=== PATIENT | female | born 1965 | race Caucasian/White ===

== ENCOUNTER → 2016-07-01 | Outpatient (CLI) | payer BC ==
[~2016-07-01] MED LIST: ACYC400T PO; CHOL100010 PO; CYAN100048 PO; FOLI1TAB7 PO
== END | disposition home or self-care (01) ==
LOC: C.PAPS 09:45
PROVIDERS: ATTEND Physician Assistant
DX: Z01.419 Encounter for gynecological examination (general) (routine) without abnormal findings (principal)

== ENCOUNTER → 2017-02-13 | Outpatient (CLI) | payer BC ==
--- NOTE | 2017-02-14 07:52 | MAMMOGRAPHY REPORT ---
BILATERAL DIGITAL SCREENING MAMMOGRAM WITH CAD: 02/13/2017 CLINICAL HISTORY: Routine screening. Patient has no complaints. TECHNIQUE: Current study was also evaluated with a Computer Aided Detection (CAD) system. Bilateral CC and MLO views were obtained. COMPARISON: Comparison is made to exams dated: 01/10/2016 mammogram, 03/07/2014 mammogram, 03/03/2013 mammogram, 03/02/2012 mammogram, 02/25/2011 mammogram, and 02/23/2010 mammogram - [facility]. BREAST COMPOSITION: The tissue of both breasts is heterogeneously dense, which may obscure small mas ses. FINDINGS: No suspicious masses, calcifications, or areas of architectural distortion are noted in ei ther breast. There has been no significant interval change compared to prior exams. IMPRESSION: ACR BI-RADS CATEGORY 1: NEGATIVE There is no mammographic evidence of malignancy. A 1 year screening mammogram is recommended. The pa tient will receive written notification of the results. Approximately 10% of breast cancers are not detected with mammography. A negative mammographic report should not delay biopsy if a clinically suggestive mass is present. Anjelica Chino M.D. /:02/13/2017 15:53:23 Manual Qa Tester: Gala OCONNOR)(Tara), [facility] letter sent: Normal 1/2 BI-RADS Code: ACR BI-RADS Category 1: Negative
== END | disposition home or self-care (01) ==
LOC: C.MAMM 14:25
PROVIDERS: ATTEND Internal Medicine
DX: Z12.31 Encounter for screening mammogram for malignant neoplasm of breast (principal)

== ENCOUNTER → 2017-07-02 | Outpatient (CLI) | payer OTHER ==
[~2017-07-02] MED LIST changes: -FOLI1TAB7 PO; +FOLI1TAB8 PO
== END | disposition home or self-care (01) ==
LOC: C.LABSPEC 11:15
PROVIDERS: ATTEND Obstetrics & Gynecology
DX: N89.8 Other specified noninflammatory disorders of vagina (principal)

== ENCOUNTER → 2017-07-02 | Outpatient (CLI) | payer OTHER | END | disposition home or self-care (01) | LOC: C.PAPS 11:41 | PROVIDERS: ATTEND Obstetrics & Gynecology | DX: Z01.419 Encounter for gynecological examination (general) (routine) without abnormal findings (principal) ==

== ENCOUNTER 2025-04-01 11:23 | Inpatient (IN) ==
[2025-04-01] MEDS: PLASMA-LYTE A 1,000 ML IV SCH (12:22)
[2025-04-01] MEDS: ACYCLOVIR SOD 700 MG in DEXTROSE 5% 100 ML IV ONE (12:22)
[2025-04-01 13:13] LABS: Alanine Aminotransferase 12.0 U/L (7-52); Albumin Globulin Ratio 2.8 (0.9-2); Albumin Level 4.8 gm/dl (3.4-5.0); Alkaline Phosphatase 67.0 U/L (34-104); Anion Gap 7.0 (3-11); Bilirubin,Total 1.6 mg/dl (0.2-1.0); Blood Urea Nitrogen 12.0 mg/dl (6-23); Calcium 9.2 mg/dl (8.6-10.3); Carbon Dioxide 30.0 mmol/L (21-32); Chloride 101.0 mmol/L (98-107); Creatinine Clr Calc Pharmacy 120.6 ml/min; Globulin 1.7 gm/dl (2.5-4.0); Glucose 106.0 mg/dl (70-99(Fasting)); Potassium 3.7 mmol/L (3.5-5.1); Sodium 138.0 mmol/L (136-145); Total Protein 6.5 gm/dl (6.0-8.3)
[2025-04-01 13:25] LABS: Hematocrit (blood only) 34.1 % (37.0-47.0); Hemoglobin 12.3 g/dL (12.0-16.0); Immature Granulocytes # (auto) 0.03 K/uL (0.01-0.20); Immature Granulocytes % (auto) 0.5 %; Mean Corpuscular Hemoglobin 30.4 pg (25.0-34.0); Mean Corpuscular Volume 84.2 fL (80.0-100.0); Platelet Count 99 K/uL (130-400); Polychromasia 1+; RDW Standard Deviation 46.2 fL (36.4-46.3); Red Blood Count 4.05 M/uL (4.20-5.40); White Blood Count 6.48 K/ul (4.8-10.8)
--- NOTE | 2025-04-01 14:10 | Emergency Department Note ---
Impression & Plan Disseminated herpes zoster, Thrombocytopenia, Acute leg pain, Localized swelling of right lower leg ED Provider Note NAME: JABIER DEL VALLEI AGE: 59 SEX: F : 1965 ARRIVES VIA: Walk-In INFORMANT: Patient, ED PROVIDER(S): Jose Juan Gonzales DO CHIEF COMPLAINT: herpes zoster HPI: This is a 59-year-old female with the PMHx of non-Hodgkin's lymphoma s/p chemotherapy in 2018 with complete remission, hemochromatosis, thrombocytopenia, and spherocytosis with splenomegaly. presenting to [facility] for further evaluation of disseminated herpes zoster infection. Patient's primary care office sent her for further evaluation of disseminated herpes zoster. Has been going on for 3 to 5 days. She has been on 3 days of Valtrex as well as gabapentin to 3 times daily. Patient failed to improve and now has developed new lesions over the chest. Extremities and scalp. Original pattern of rash was present on the right lower back nontoxic. Patient reports shocklike sensation and intermittent pain. She does note extremity swelling of the right lower extremity as well as difficulty walking due to the pain in this leg. They deny fever or chills. No cough or congestion. Denies chest pain or palpitations. No shortness of breath. They deny abdominal pain, nausea and vomiting. No urinary complaints. No recent changes in bowel movements. Patient denies recent changes in medications or OTC supplements. Patient offers no other complaints, today. ADDITIONAL HISTORY OBTAINED: Per HPI Chronic Medical/Social Conditions Affecting Care: Per HPI PAST MEDICAL HISTORY: See Below PAST SURGICAL HISTORY: See Below FAMILY HISTORY: See Below SOCIAL HISTORY: See Below HOME MEDICATIONS: See Below ALLERGIES: See Below VITALS: See Below PHYSICAL EXAMINATION: GENERAL: Sitting up in bed, alert, well appearing, well nourished, no distress, non-toxic EYE EXAM: normal conjunctiva. OROPHARYNX: no exudate, no erythema, lips, buccal mucosa, and tongue normal and mucous membranes are moist NECK: supple, no nuchal rigidity, no adenopathy, non-tender LUNGS: Clear to auscultation. Normal chest wall mechanics HEART: no murmurs, regular rate, regular rhythm ABDOMEN: abdomen soft, non-tender, no masses, no rebound or guarding. BACK: Back is symmetrical on inspection and there is no deformity, no midline tenderness, no CVA tenderness. SKIN: Honey crusted lesions over the right lower back and buttock. New erythematous lesions without significant vesicles over the right lower extremity and chest. UPPER EXTREMITIES: upper extremities are grossly normal. LOWER EXTREMITIES: Erythematous vasculitic appearing rash of the right lower extremity. Right lower extremity is mildly swollen. Neurovascularly intact. NEURO EXAM: Normal sensorium, GCS 15, normal speech, no gross weakness of arms, no gross weakness of legs. MEDICAL DECISION MAKING: Differential diagnoses includes but not limited to disseminated herpes zoster infection, viral exanthem, vasculitis, DVT, electrolyte derangements, dehydration In summary, this is a 59 year old female who presented with rash. Differential as above. Nursing notes and pertinent past medical records reviewed. Vital signs reviewed and the patient is borderline hypotensive but otherwise afebrile and hemodynamically stable. History and presentation revealed patient was diagnosed with herpes zoster infection in 3 to 5 days ago. Patient has been on Valtrex and gabapentin with failure to improve. She now has new lesions with concerns for disseminated infection. Unclear risk but has numerous hematologic diseases that could place her at higher risk for this. Physical examination revealed as above. As a result of my initial evaluation, IV access was established and the patient was placed on CCRM. Therapeutics ordered include IVFR and Acyclovir. Given RLE complaints, will obtain duplex US. Diagnostics interpreted by me include cardiac monitoring as listed below: -Cardiac Monitoring: An order was placed for continuous cardiac monitoring. The monitor shows a rate of 60-80s with regular rhythm. Patient completed laboratory studies and imaging. Results independently interpreted by me are no leukocytosis or anemia. Mild thrombocytopenia which is similar to prior draw. There is no significant electrolyte derangements or significant kidney dysfunction from baseline. No changes in LFTs. Duplex US was unremarkable for DVT. Procalcitonin is normal. The patient was managed with IV Acyclovir and IVFR. Given concern for disseminated herpes zoster, we will plan for admission with IV Acyclovir. Ultimately, the decision was made to admit the patient for disseminated herpes zoster infection. I discussed the case with the hospitalist service via telephone/Tiger[employer] and they are agreeable to admit the patient to their services. Discussed with Dr. Albright of [facility] Hospitalist group. Based on the above, including the patient's age, coexisting illnesses, labs, imaging, and exam findings the decision to treat as an inpatient. I discussed the patient with the hospitalist team who recommended admission to their services. They received the medications, treatments, interventions indicated above and their condition remained stable. I discussed my findings with the patient and their family and they understand and agree with the treatment plan. All patient / family questions were answered to their satisfaction. Consults/Care Managements Discussions: Per MDM ER treatment provided: See above Procedures: None Critical Care: None The chart was completed utilizing [email or web address] Speech voice recognition software. Grammatical errors, random word insertions, pronoun errors, and incomplete sentences are an occasional consequence of this system due to software limitations, ambient noise, and hardware issues. Any formal questions or concerns about the content, text, or information contained within the body of this dictation should be directly addressed to the physician for clarification. Past Med/Surg History Problem List (Updated 04/01/25 @ 17:53 by Jose Juan Gonzales DO) Localized swelling of right lower leg (Acute) Acute leg pain (Acute) Thrombocytopenia (Acute) Disseminated herpes zoster (Acute) Disseminated varicella History of non-Hodgkin lymphoma Dyspareunia in female Encounter for gynecological examination without abnormal finding Change in pigmented skin lesion of face Anxiety Health care maintenance Vitamin D deficiency disease (Acute) Thrombocytopenia (Acute) Spleen enlargement (Acute) Nonspecific immunological findings (Acute) History of lymphadenopathy (Acute) Nodular lymphocyte predominant Hodgkin lymphoma (Acute) Hemorrhoids (Acute) Familial spherocytosis (Acute) Medical History Inspiratory wheezing on left side of chest Tendinitis of left ankle Left ankle injury Status post chemotherapy Right hand pain Surgical History History of removal of skin mole H/O rhinoplasty Hx of tonsillectomy Family History Mother Breast cancer Hypothyroid Glaucoma Aunt Breast cancer Denies family history of Ovarian cancer Prostate cancer Myocardial infarction Colorectal cancer Social History Smoking Status: Never smoker Second Hand Exposure: No; Hx Alcohol Use: No Hx Substance Use: No Preferred Language: Setswana Visual Impairment: No Limitations Hearing Ability: Normal marital status: Current Living Situation: Family current occupational status: employed Feels Safe at Home: Yes Childhood Exposure to Second-Hand Smoke: No Dental Care, Regularly: Yes Physical Activity Frequency: Daily Seatbelt Use: always Sunscreen Use: No Allergies Allergies Allergy/AdvReac Type Severity Reaction Status Date / Time buspirone [From BuSpar] AdvReac Anxiety Verified 04/01/25 10:22 Home Meds Home Medications Medication Instructions Recorded Confirmed cholecalciferol (vitamin D3) 50 1,000 unit PO DAILY 01/15/21 04/01/25 mcg (2,000 unit) tablet folic acid 400 mcg tablet 0.4 mg PO DAILY 01/15/21 04/01/25 magnesium glycinate 100 mg (as 400 mg PO DAILY 10/03/23 04/01/25 glycinate) tablet mecobalamin (vitamin B12) 1,000 1,000 mcg PO DAILY 03/29/24 04/01/25 mcg chewable tablet Previous Rx's Medication Instructions Recorded hydroxyzine HCl 10 mg tablet 10 mg PO TID PRN anxiety #30 tabs 10/03/23 loratadine 10 mg tablet 10 mg PO DAILY PRN allergy 06/07/24 symptoms #30 tabs escitalopram oxalate 5 mg tablet 5 mg PO DAILY #30 tabs 10/14/24 (Lexapro) gabapentin 100 mg capsule 100 mg PO TID PRN Nerve pain #30 03/29/25 caps Results & Data (ED) Vital Signs Vital Signs - 24 hr 04/01/25 11:34 04/01/25 12:26 04/01/25 12:53 Temperature 36.4 C L Temperature Source Temporal Artery Scan Pulse Rate 75 68 Pulse Rate from SpO2 Sensor Respiratory Rate 20 Respiratory Effort / Characteristics Non-Labored Respiratory Depth Normal Blood Pressure 115/74 121/71 Blood Pressure Mean 87 91 Pulse Oximetry 97 Oxygen Delivery Method Room Air Sepsis Recent Fever Within 48 Hours No Sepsis New/Unexplained Change in Mental Status No Sepsis Action Taken by Nursing No Action Required 04/01/25 13:00 04/01/25 13:30 04/01/25 14:24 Temperature Temperature Source Pulse Rate 77 74 71 Pulse Rate from SpO2 Sensor 75 72 71 Respiratory Rate 15 18 13 Respiratory Effort / Characteristics Respiratory Depth Blood Pressure 129/76 96/75 L 117/67 Blood Pressure Mean 93 82 83 Pulse Oximetry 98 100 99 Oxygen Delivery Method Room Air Room Air Room Air Sepsis Recent Fever Within 48 Hours Sepsis New/Unexplained Change in Mental Status Sepsis Action Taken by Nursing 04/01/25 14:30 Temperature Temperature Source Pulse Rate 71 Pulse Rate from SpO2 Sensor 70 Respiratory Rate 17 Respiratory Effort / Characteristics Respiratory Depth Blood Pressure 128/75 Blood Pressure Mean 92 Pulse Oximetry 98 Oxygen Delivery Method Room Air Sepsis Recent Fever Within 48 Hours Sepsis New/Unexplained Change in Mental Status Sepsis Action Taken by Nursing Laboratory Data 04/01/25 12:20 04/01/25 12:20 Lab Results 04/01/25 Range/Units 12:20 WBC 6.48 (4.8-10.8) K/ul RBC 4.05 L (4.20-5.40) M/uL Hgb 12.3 (12.0-16.0) g/dL Hct 34.1 L (37.0-47.0) % MCV 84.2 (80.0-100.0) fL MCH 30.4 (25.0-34.0) pg MCHC 36.1 H (32.0-36.0) g/dL RDW Std Deviation 46.2 (36.4-46.3) fL RDW Coeff of Alex 15.2 H (11.5-14.5) % Plt Count 99 L (130-400) K/uL MPV 10.1 (9.4-12.4) fL Immature Gran % (Auto) 0.5 % Neut % (Auto) 55.5 % Lymph % (Auto) 34.1 % [place] % (Auto) 9.4 % Eos % (Auto) 0.3 % Baso % (Auto) 0.2 % Neut # (Auto) 3.60 (1.40-6.50) K/uL Lymph # (Auto) 2.21 (1.20-3.40) K/uL [place] # (Auto) 0.61 H (0.11-0.59) K/uL Eos # (Auto) 0.02 (0.00-0.50) K/uL Baso # (Auto) 0.01 (0.00-0.20) K/uL Immature Gran # (Auto) 0.03 (0.01-0.20) K/uL Platelet Estimate Decreased L (Normal) Polychromasia 1+ Sodium 138 (136-145) mmol/L Potassium 3.7 (3.5-5.1) mmol/L Chloride 101 (98-107) mmol/L Carbon Dioxide 30 (21-32) mmol/L Anion Gap 7 (3-11) BUN 12 (6-23) mg/dl Creatinine 0.54 L (0.6-1.2) mg/dl Est Cr Clr Drug Dosing 120.6 ml/min eGFR 105.99 BUN/Creatinine Ratio 22.2 H (10-20) Glucose 106 H (70-99(Fasting)) mg/dl Calcium 9.2 (8.6-10.3) mg/dl Total Bilirubin 1.6 H (0.2-1.0) mg/dl AST 14 (13-39) U/L ALT 12 (7-52) U/L Alkaline Phosphatase 67 (34-104) U/L Total Protein 6.5 (6.0-8.3) gm/dl Albumin 4.8 (3.4-5.0) gm/dl Globulin 1.7 L (2.5-4.0) gm/dl Albumin/Globulin Ratio 2.8 H (0.9-2) Procalcitonin 0.17 (0-0.5) ng/ml Administered Medications Parenteral Electrolytes (Plasma-Lyte A Ph 7.4) 1,000 mls @ 125 mls/hr IV .Q8H KRYSTINA Stop: 04/04/25 11:59 Last Admin: 04/01/25 12:22 Dose: 125 mls/hr Documented By: mbu Discontinued Medications Acyclovir Sodium 700 mg/ (Dextrose) 114 mls @ 100 mls/hr IV NOW ONE; Protocol Stop: 04/01/25 12:53 Last Infusion: 04/01/25 13:45 Dose: Infused Documented By: mbu Admin: 04/01/25 12:22 Dose: 100 mls/hr Documented By: mbu Imaging Data Radiologist's Impression: Venous Doppler Study 04/01/25 11:45 US venous doppler LE RT HISTORY: eval for dvt COMPARISON: None TECHNIQUE: Multiple real-time sonographic images of the right lower extremity deep venous structures were obtained assessing grayscale appearance, color and spectral flow. FINDINGS: No evidence of DVT seen at the right lower extremity. IMPRESSION: No DVT seen. ACT 112: Negative or not required by law. The above report was generated using voice recognition software. It may contain grammatical, syntax or spelling errors. Electronically signed by: Waldo Dubose M.D. 04/01/2025 2:20 PM Discharge Plan Visit Data Chief Complaint: Referred by Doctor Stated Complaint: REF BY DOC, INFUSION ED Provider: Jose Juan Gonzales Discharge Problem: Disseminated herpes zoster, Thrombocytopenia, Acute leg pain, Localized swelling of right lower leg Patient Disposition: Admitted As Inpatient Condition: Fair Discharge Instructions Interventions: ED Discharge Assessment Last Done: 04/01/25 17:37
--- NOTE | 2025-04-01 14:22 | Ultrasound Report ---
US venous doppler LE RT HISTORY: eval for dvt COMPARISON: None TECHNIQUE: Multiple real-time sonographic images of the right lower extremity deep venous structures were obtained assessing grayscale appearance, color and spectral flow. FINDINGS: No evidence of DVT seen at the right lower extremity. IMPRESSION: No DVT seen. ACT 112: Negative or not required by law. The above report was generated using voice recognition software. It may contain grammatical, syntax o r spelling errors. Electronically signed by: Waldo Dubose M.D. 04/01/2025 2:20 PM
--- NOTE | 2025-04-01 16:23 | History & Physical Report ---
Date of Service April 01, 2025 Assessment & Plan (1) Disseminated varicella: (2) Anxiety: (3) Thrombocytopenia: Plan 59-year-old female with a past medical history of non-Hodgkin's lymphoma in remission, anxiety, thrombocytopenia, splenomegaly presents for facility with likely disseminated varicella with failure of outpatient therapy: #Disseminated varicella -Admit to [facility] -Patient ordered for intravenous acyclovir -Reviewed with infectious disease, await further recommendations and consultation -Unclear underlying cause for disseminated varicella #Anxiety -Continue home Lexapro dosing #Thrombocytopenia -Continue to monitor platelets, no evidence of acute bleeding noted History of Present Illness Chief Complaint: rash Primary Care Provider: Sammie Myles MD 59-year-old female with a past medical history as mentioned below presents to the hospital from home. She mentions that last Friday she started experiencing right lower extremity discomfort, along with some skin changes for which she went to an urgent care center. She was diagnosed with shingles, given a prescription for acyclovir but told that she will likely will not need to take this. She did not take the acyclovir, and noticed worsening discomfort along with skin changes on her chest for which she went to her primary care physician earlier this week. They recommended that she take the acyclovir, which she initiated. She has been taking the acyclovir for at least 2 days, but noticed increased skin changes along with sharp pain on her right scalp. She denies having any vision changes or hearing issues. She also noticed increased skin changes on her right back area, Along with skin changes going down to her right leg and foot. She reached out to her primary care physician's office today and they advised that she come to the hospital for intravenous medication. She has had no fevers but mention she has had some intermittent chills. She has not no cough. She had chickenpox as a child but did not receive the shingles vaccine. Allergies Allergy/AdvReac Type Severity Reaction Status Date / Time buspirone [From BuSpar] AdvReac Anxiety Verified 04/01/25 10:22 Home Medications Medication Instructions Recorded Confirmed Type cholecalciferol (vitamin D3) 50 1,000 unit PO DAILY 01/15/21 04/01/25 History mcg (2,000 unit) tablet folic acid 400 mcg tablet 0.4 mg PO DAILY 01/15/21 04/01/25 History hydroxyzine HCl 10 mg tablet 10 mg PO TID PRN anxiety #30 tabs 10/03/23 04/01/25 Rx magnesium glycinate 100 mg (as 400 mg PO DAILY 10/03/23 04/01/25 History glycinate) tablet mecobalamin (vitamin B12) 1,000 1,000 mcg PO DAILY 03/29/24 04/01/25 History mcg chewable tablet loratadine 10 mg tablet 10 mg PO DAILY PRN allergy 06/07/24 04/01/25 Rx symptoms #30 tabs escitalopram oxalate 5 mg tablet 5 mg PO DAILY #30 tabs 10/14/24 04/01/25 Rx (Lexapro) gabapentin 100 mg capsule 100 mg PO TID PRN Nerve pain #30 03/29/25 04/01/25 Rx caps Past Med/Surg History Problem List (Updated 04/01/25 @ 17:53 by Jose Juan Gonzales DO) Localized swelling of right lower leg (Acute) Acute leg pain (Acute) Thrombocytopenia (Acute) Disseminated herpes zoster (Acute) Disseminated varicella History of non-Hodgkin lymphoma Dyspareunia in female Encounter for gynecological examination without abnormal finding Change in pigmented skin lesion of face Anxiety Health care maintenance Vitamin D deficiency disease (Acute) Thrombocytopenia (Acute) Spleen enlargement (Acute) Nonspecific immunological findings (Acute) History of lymphadenopathy (Acute) Nodular lymphocyte predominant Hodgkin lymphoma (Acute) Hemorrhoids (Acute) Familial spherocytosis (Acute) Medical History Inspiratory wheezing on left side of chest Tendinitis of left ankle Left ankle injury Status post chemotherapy Right hand pain Surgical History History of removal of skin mole H/O rhinoplasty Hx of tonsillectomy Family History Mother Breast cancer Hypothyroid Glaucoma Aunt Breast cancer Denies family history of Ovarian cancer Prostate cancer Myocardial infarction Colorectal cancer Social History Smoking Status: Never smoker Second Hand Exposure: No; Hx Alcohol Use: No Hx Substance Use: No Preferred Language: Russian Visual Impairment: No Limitations Hearing Ability: Normal marital status: Current Living Situation: Family current occupational status: employed Feels Safe at Home: Yes Childhood Exposure to Second-Hand Smoke: No Dental Care, Regularly: Yes Physical Activity Frequency: Daily Seatbelt Use: always Sunscreen Use: No Physical Exam Constitutional: well developed and well nourished Respiratory: normal respiratory effort Cardiovascular: RRR, no murmur, no edema Gastrointestinal (Abdomen): normal bowel sounds, soft, nontender, no hepatosplenomegaly Musculoskeletal: no cyanosis or clubbing, extremities motor strength 5/5 Skin: diffuse rash n right bck area that goes down to the right foot, some area on lower back and chest area, and one on right forehead. Psychiatric: A+Ox3, euthymic affect Results & Data Results & Data Vital Signs (Past 12 Hours) Vital Signs Temp Pulse Resp BP Pulse Ox O2 Del Method 04/01/25 14:30 71 17 128/75 98 Room Air 04/01/25 14:24 71 13 117/67 99 Room Air 04/01/25 13:30 74 18 96/75 L 100 Room Air 04/01/25 13:00 77 15 129/76 98 Room Air 04/01/25 12:53 121/71 04/01/25 12:26 68 04/01/25 11:34 36.4 C L 75 20 115/74 97 Room Air Laboratory Results 04/01/25 12:20 WBC 6.48 RBC 4.05 L Hgb 12.3 Hct 34.1 L MCV 84.2 MCH 30.4 MCHC 36.1 H RDW Std Deviation 46.2 RDW Coeff of Alex 15.2 H Plt Count 99 L MPV 10.1 Immature Gran % (Auto) 0.5 Neut % (Auto) 55.5 Lymph % (Auto) 34.1 [place] % (Auto) 9.4 Eos % (Auto) 0.3 Baso % (Auto) 0.2 Neut # (Auto) 3.60 Lymph # (Auto) 2.21 [place] # (Auto) 0.61 H Eos # (Auto) 0.02 Baso # (Auto) 0.01 Immature Gran # (Auto) 0.03 Platelet Estimate Decreased L Polychromasia 1+ Sodium 138 Potassium 3.7 Chloride 101 Carbon Dioxide 30 Anion Gap 7 BUN 12 Creatinine 0.54 L Est Cr Clr Drug Dosing 120.6 eGFR 105.99 BUN/Creatinine Ratio 22.2 H Glucose 106 H Calcium 9.2 Total Bilirubin 1.6 H AST 14 ALT 12 Alkaline Phosphatase 67 Total Protein 6.5 Albumin 4.8 Globulin 1.7 L Albumin/Globulin Ratio 2.8 H Procalcitonin 0.17 Diagnostic Findings Venous Doppler Study 04/01/25 11:45 US venous doppler LE RT HISTORY: eval for dvt COMPARISON: None TECHNIQUE: Multiple real-time sonographic images of the right lower extremity deep venous structures were obtained assessing grayscale appearance, color and spectral flow. FINDINGS: No evidence of DVT seen at the right lower extremity. IMPRESSION: No DVT seen. ACT 112: Negative or not required by law. The above report was generated using voice recognition software. It may contain grammatical, syntax or spelling errors. Electronically signed by: Waldo Dubose M.D. 04/01/2025 2:20 PM Code Status & VTE Plan VTE Prophylaxis Plan VTE Prophylaxis will be ordered: Yes PG Care Time/CCT Total # of Minutes Spent Total Time Spent with Patient: Total time spent is greater than 50% in coordination of care (as documented) at patient's floor/unit and/or counseling patient: Coding Level of Care Code 75646 INT INP/OBS CARE 3/75MIN Diagnoses Disseminated varicella B01.9 Anxiety F41.9 Thrombocytopenia D69.6
--- NOTE | 2025-04-01 16:30 | Infectious Disease Consult ---
Date of Consultation April 01, 2025 Assessment & Plan (1) Disseminated varicella: (2) History of non-Hodgkin lymphoma: (3) Spleen enlargement: Plan 59yo F with h/o non-Hodgkins lymphoma dx 2015 s/p RCHOP with complete remission by Mar 2015, familial spherocytosis, hereditary hemochromatosis, enlarged spleen, hemorrhoids who presented on 04/01 with c/f disseminated zoster with initial lesions starting about 1wk ago. Taking valacyclovir since 03/29. On arrival, she was afebrile, vss. WBC wnl, Cr 0.54, AST/ALT wnl. PCT 0.17. Right LE venous doppler neg for DVT. She was started on acyclovir. ID consulted 04/01. Im unable to see patient due to no telepresenter availability at this time. Would continue acyclovir for disseminated infection. She is not on chemo and doesnt have any current known immunocompromise. Would assess for any findings that could suggest zoster ophthalmicus (ie lesion distribution over face/tip of nose). Evaluate for visceral involvement (LFTs ok, would obtain a CXR). She also needs to be evaluated for underlying immunosuppression (e.g. HIV, diabetes, any other malignancy or recurrence). # Disseminated herpes zoster # h/o non-Hodgkins lymphoma in remission since 2014 - please obtain CXR for w/u of visceral involvement (ie pneumonitis) - evaluate for any facial lesions that could suggest zoster ophthalmicus if present, she needs an ophthalmologic exam - please obtain verbal consent for HIV testing and send HIV screen - evaluate for underlying malignancy (recurrence of NHL?) or other immunocompromising conditions (e.g., diabetes) - Vivian ordered acyclovir 10mg/kg IV q8h (wt 68.1kg) - contact and airborne precautions due to disseminated disease Will continue to follow. Please note that there will be no ID notes over the weekend. If questions or concerns arise, please contact the Infectious Disease Call Center and ask to speak with the covering ID physician. Esther Dias MD [facility], Division of Infectious Diseases Consultation Information This patient recommendation is based on a telemedicine consult request which was completed asynchronously through chart review and information provided by the primary physician. The patient was not seen or examined today. The evaluation is consultative in nature and all patient care and treatment decisions can either be accepted or rejected by the patient's primary hospital-based treating physician using their own independent medical judgment for their patient. Data Warehousing Manager contact information: Please call ID Connect Call Center . (Phone Number For Physician Use Only) Time Spent Reviewing Chart: 31+ minutes History of Present Illness Reason for Consultation: disseminated zoster Requesting Physician: Daniele Albright History of Present Illness 59yo F with h/o non-Hodgkins lymphoma dx 2015 s/p RCHOP with complete remission by Mar 2015, familial spherocytosis, hereditary hemochromatosis, enlarged spleen, hemorrhoids who presented on 04/01 with c/f disseminated zoster. She was seen in [facility] on 03/25 with right buttock pain with radiation down the leg with subsequent development of vesicles on the right upper/mid buttock and lateral hip following a dermatomal pattern. She was prescribed valacyclovir 1g PO tid for shingles. She was seen at PCP office on 03/29 at which time she reported that she had not started valacyclovir since her pain was improving. However, she reported to PCP that she was developing new lesions on night of 03/28 and continued to have pain in her back, but no longer shooting down. Also reported malaise. Her exam at that time was noted to have 2 quarter sized vesicular lesions along right iliac with erythema. She was advised to start valacyclovir since she continued to develop new lesions. She was then seen in PCP office on 04/01 at which time she reported right foot swelling with rash on dorsum of foot, pins/needles with difficulty walking due to pain, noted a spot under her right breast and also with sharp pain on the right side of her head with possible spot on her restoration. Exam at that time noted herpetic lesions on right sacral area around L5, additional lesions around T12 and T7 on back and front, right restoration and TMJ lesions, right lower leg lesion L5/S1 with right foot swelling. Given lesions crossing dermatomes and c/f disseminated zoster, she was advised to go to the ED. On arrival, she was afebrile, vss. WBC wnl, Cr 0.54, Ast/ALT wnl. PCT 0.17. Right LE venous doppler neg for DVT. She was started on acyclovir. ID consulted 04/01. No telepresenter available at this time. Allergies Allergy/AdvReac Type Severity Reaction Status Date / Time buspirone [From BuSpar] AdvReac Anxiety Verified 04/01/25 10:22 Home Medications Medication Instructions Recorded Confirmed Type cholecalciferol (vitamin D3) 50 1,000 unit PO DAILY 01/15/21 04/01/25 History mcg (2,000 unit) tablet folic acid 400 mcg tablet 0.4 mg PO DAILY 01/15/21 04/01/25 History hydroxyzine HCl 10 mg tablet 10 mg PO TID PRN anxiety #30 tabs 10/03/23 04/01/25 Rx magnesium glycinate 100 mg (as 400 mg PO DAILY 10/03/23 04/01/25 History glycinate) tablet mecobalamin (vitamin B12) 1,000 1,000 mcg PO DAILY 03/29/24 04/01/25 History mcg chewable tablet loratadine 10 mg tablet 10 mg PO DAILY PRN allergy 06/07/24 04/01/25 Rx symptoms #30 tabs escitalopram oxalate 5 mg tablet 5 mg PO DAILY #30 tabs 10/14/24 04/01/25 Rx (Lexapro) gabapentin 100 mg capsule 100 mg PO TID PRN Nerve pain #30 03/29/25 04/01/25 Rx caps Patient History Medical History Inspiratory wheezing on left side of chest Tendinitis of left ankle Left ankle injury Status post chemotherapy Right hand pain Surgical History History of removal of skin mole H/O rhinoplasty Hx of tonsillectomy Family History Mother Breast cancer Hypothyroid Glaucoma Aunt Breast cancer Denies family history of Ovarian cancer Prostate cancer Myocardial infarction Colorectal cancer Social History Smoking Status: Never smoker Second Hand Exposure: No; Hx Alcohol Use: No Hx Substance Use: No Preferred Language: Citizen Of [place] Visual Impairment: No Limitations Hearing Ability: Normal marital status: Current Living Situation: Family current occupational status: employed Feels Safe at Home: Yes Childhood Exposure to Second-Hand Smoke: No Dental Care, Regularly: Yes Physical Activity Frequency: Daily Seatbelt Use: always Sunscreen Use: No Results & Data Vital Signs (Past 12 Hours) Vital Signs Temp Pulse Resp BP Pulse Ox O2 Del Method 04/01/25 16:27 67 04/01/25 14:30 71 17 128/75 98 Room Air 04/01/25 14:24 71 13 117/67 99 Room Air 04/01/25 13:30 74 18 96/75 L 100 Room Air 04/01/25 13:00 77 15 129/76 98 Room Air 04/01/25 12:53 121/71 04/01/25 12:26 68 04/01/25 11:34 36.4 C L 75 20 115/74 97 Room Air Laboratory Results Labs reviewed. Diagnostic Findings Imaging reviewed.
[2025-04-01] MEDS ORDERED: MELATONIN 3 MG TAB PO PRN (17:37)
[2025-04-01] MEDS ORDERED: ALUMINUM/MAGNESIUM SUSP 30 ML UDC PO PRN (17:37)
[2025-04-01] MEDS ORDERED: MAGNESIUM HYDROXIDE SUSP 30 ML UDC PO PRN (17:37)
[2025-04-01] MEDS ORDERED: ACYCLOVIR SOD 680 MG in DEXTROSE 5% 100 ML IV SCH (17:37)
[2025-04-01 18:18] LABS: Ferritin 207.5 ng/ml (8-388)
[2025-04-01] MEDS: ACETAMINOPHEN 325 MG TAB PO PRN (18:29)
[2025-04-01] MEDS: SODIUM CHLORIDE 0.9% 1,000 ML IV SCH (18:31)
[2025-04-01] MEDS: ENOXAPARIN INJ 40 MG/0.4 ML SYR SQ SCH (18:33)
--- NOTE | 2025-04-01 20:35 | XRay Report ---
Exam(s): XR CXR 2 VIEWS EXAM: XR Chest, 2 Views CLINICAL HISTORY: Reason for exam: zoster evaluation. TECHNIQUE: Frontal and lateral views of the chest. COMPARISON: 05/15/2009. FINDINGS: Lungs: Unremarkable. No consolidation. Pleural space: Unremarkable. No pneumothorax. Heart: Unremarkable. No cardiomegaly. Mediastinum: Unremarkable. Normal mediastinal contour. Bones/joints: Mild degenerative changes in the spine. No acute fracture or bone lesion is identified. Soft tissues: There are surgical clips projecting of the left upper thorax which are new. Upper abdomen: Unremarkable as visualized. No pneumoperitoneum under the diaphragm. IMPRESSION: No acute findings in the chest. Electronically signed by: Yuriy Johnson MD 04/01/25 20:34 PM
[2025-04-01] MEDS: ACYCLOVIR SOD 700 MG in DEXTROSE 5% 100 ML IV SCH (22:06)
[2025-04-02] MEDS: GABAPENTIN 100 MG CAP PO PRN (05:57)
[2025-04-02 06:52] LABS: Hematocrit (blood only) 31.6 % (37.0-47.0); Hemoglobin 11.3 g/dL (12.0-16.0); Immature Granulocytes # (auto) 0.01 K/uL (0.01-0.20); Immature Granulocytes % (auto) 0.2 %; Mean Corpuscular Hemoglobin 30.9 pg (25.0-34.0); Mean Corpuscular Volume 86.3 fL (80.0-100.0); Platelet Count 98 K/uL (130-400); RDW Standard Deviation 47.7 fL (36.4-46.3); Red Blood Count 3.66 M/uL (4.20-5.40); White Blood Count 4.83 K/ul (4.8-10.8)
[2025-04-02 07:21] LABS: Alanine Aminotransferase 11.0 U/L (7-52); Albumin Globulin Ratio 2.9 (0.9-2); Albumin Level 4.1 gm/dl (3.4-5.0); Alkaline Phosphatase 60.0 U/L (34-104); Anion Gap 6.0 (3-11); Bilirubin,Total 1.2 mg/dl (0.2-1.0); Blood Urea Nitrogen 12.0 mg/dl (6-23); Calcium 8.7 mg/dl (8.6-10.3); Carbon Dioxide 30.0 mmol/L (21-32); Chloride 105.0 mmol/L (98-107); Creatinine Clr Calc Pharmacy 115.8 ml/min; Globulin 1.4 gm/dl (2.5-4.0); Glucose 125.0 mg/dl (70-99(Fasting)); Magnesium 2.4 mg/dl (1.7-2.4); Potassium 4.0 mmol/L (3.5-5.1); Sodium 141.0 mmol/L (136-145); Total Protein 5.5 gm/dl (6.0-8.3)
[2025-04-02 07:40] LABS: Ferritin 211.1 ng/ml (8-388)
[2025-04-02 07:42] LABS: INR 1.0 (0.9-1.1); Prothrombin Time 10.7 Seconds (9.0-12.0)
[2025-04-02] MEDS: FOLIC ACID 400 MCG TAB PO SCH (07:59)
[2025-04-02] MEDS: CHOLECALCIFEROL 25 MCG (1000 UNITS) TAB PO SCH (07:59)
[2025-04-02] MEDS: ESCITALOPRAM OXALATE 10 MG TAB PO SCH (07:59)
[2025-04-02] MEDS: CYANOCOBALAMIN (B-12) 500 MCG TABLET PO SCH (08:01)
[2025-04-02] MEDS ORDERED: CHOLECALCIFEROL 25 MCG (1000 UNITS) TAB PO SCH (09:00)
[2025-04-02] MEDS: MAGNESIUM OXIDE 400 MG TAB PO SCH (09:48)
--- NOTE | 2025-04-02 12:09 | Hospitalist Progress Note ---
Date of Service April 02, 2025 Assessment & Plan (1) Disseminated varicella: (2) Anxiety: (3) Thrombocytopenia: Plan 59-year-old female with a past medical history of non-Hodgkin's lymphoma in remission, anxiety, thrombocytopenia, splenomegaly presents for facility with likely disseminated varicella with failure of outpatient therapy: #Disseminated varicella -Patient ordered for intravenous acyclovir -Reviewed with infectious disease, Awaiting proper infectious disease c onsultation, this will likely not be until 04/04. -Unclear underlying cause for disseminated varicella -Will check for HIV, chest x-ray with no acute findings -has some lesions on the scalp, will consider reviewing with ophthalmology, no vision changes noted at this time. -pt is with some scalp lesions. #Anxiety -Continue home Lexapro dosing #Thrombocytopenia -Continue to monitor platelets, no evidence of acute bleeding noted #Hyperbilirubinemia -Patient with elevated bilirubin on admission, will check abdominal ultrasound to evaluate this further Admission and Anticipated Discharge Date Admission Date: April 01, 2025 Subjective Patient seen and examined. She denies having any chest pain or trouble breathing at this time. She denies having a cough at this time. She complains of ongoing discomfort and sharp pain in her foot. Physical Exam Constitutional: well developed and well nourished Respiratory: normal respiratory effort Cardiovascular: RRR, no murmur, no edema Gastrointestinal (Abdomen): normal bowel sounds, soft, nontender, no hepatosplenomegaly Musculoskeletal: no cyanosis or clubbing, extremities motor strength 5/5 Psychiatric: A+Ox3, euthymic affect Results & Data Results & Data Vital Signs (Past 12 Hours) Vital Signs Temp Pulse Resp BP Pulse Ox O2 Del Method 04/02/25 08:02 36.8 C 65 14 103/63 95 Room Air PG Care Time/CCT Total # of Minutes Spent Total Time Spent with Patient: Total time spent is greater than 50% in coordination of care (as documented) at patient's floor/unit and/or counseling patient: Coding Level of Care Code 83923 SUB INP/OBS CARE 3/50MIN Diagnoses Disseminated varicella B01.9 Anxiety F41.9 Thrombocytopenia D69.6
[2025-04-02] MEDS: SODIUM CHLORIDE 0.65% NA SOLN 45 ML (OCEAN) PRN (15:17)
[2025-04-02] MEDS: POLYETHYLENE (MIRALAX) 17 GM PACK PO PRN (15:25)
[2025-04-02] MEDS: GABAPENTIN 300 MG CAP PO SCH (21:42)
[2025-04-03 06:36] LABS: Hematocrit (blood only) 32.6 % (37.0-47.0); Hemoglobin 11.4 g/dL (12.0-16.0); Immature Granulocytes # (auto) 0.01 K/uL (0.01-0.20); Immature Granulocytes % (auto) 0.2 %; Mean Corpuscular Hemoglobin 30.2 pg (25.0-34.0); Mean Corpuscular Volume 86.5 fL (80.0-100.0); Platelet Count 122 K/uL (130-400); RDW Standard Deviation 47.0 fL (36.4-46.3); Red Blood Count 3.77 M/uL (4.20-5.40); White Blood Count 5.08 K/ul (4.8-10.8)
[2025-04-03 07:13] LABS: Alanine Aminotransferase 14 U/L (7-52); Albumin Globulin Ratio 2.9 (0.9-2); Albumin Level 4.1 gm/dl (3.4-5.0); Alkaline Phosphatase 60 U/L (34-104); Anion Gap 6 (3-11); Bilirubin,Total 1.0 mg/dl (0.2-1.0); Blood Urea Nitrogen 12 mg/dl (6-23); Calcium 9.0 mg/dl (8.6-10.3); Carbon Dioxide 28 mmol/L (21-32); Chloride 107 mmol/L (98-107); Creatinine Clr Calc Pharmacy 115.8 ml/min; Globulin 1.4 gm/dl (2.5-4.0); Glucose 101 mg/dl (70-99(Fasting)); Magnesium 2.4 mg/dl (1.7-2.4); Potassium 4.2 mmol/L (3.5-5.1); Sodium 141 mmol/L (136-145); Total Protein 5.5 gm/dl (6.0-8.3)
[2025-04-03 07:14] LABS: Immunoglobulin A < 10.0 mg/dl (70-400); Immunoglobulin G < 200.0 mg/dl (635-1741); Immunoglobulin M 70.2 mg/dl (45-281)
--- NOTE | 2025-04-03 10:12 | Allergy & Immunology Consult ---
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 Although the patient does not have a particularly significant history of sinopulmonary infections, she is currently hospitalized for disseminated varicella-zoster (which puts her at increased risk of developing secondary superinfection with encapsulated organisms). Fortunately, the patient has not required inpatient therapy with any antibiotics thus far. As the patient's clinical picture is consistent with a secondary CVID status post her chemotherapy course, the patient will be acutely treated with a spot dose of IVIG (of note, Octagam contains trace levels of IgA) and she will subsequently follow-up with Allergy/Immunology on a longitudinal outpatient basis moving forward. Given the patient's largely unremarkable infectious history prior to her chemotherapy, it is unlikely that she is experiencing symptoms of an underlying primary immunodeficiency (particularly as her family history of immunodeficiency requiring immunoglobulin replacement is also status post chemotherapy). -Continue treatment for disseminated varicella-zoster as per primary Hospitalist team/Infectious Disease recommendations -10mg/kg IV acyclovir q8h -Recommend receiving the Shingrix vaccination at PCP's office once the acute illness is over and symptoms (rash, etc.) have fully resolved -Administer spot-dose of ~500mg/kg IVIG (35g IVIG) in an acute illness setting -Consider pretreatment/treatment with antihistamines and/or acetaminophen, as necessary -Will follow up patient on an outpatient basis to better discern whether she requires longitudinal immunoglobulin replacement (e.g. 10g qWeekly Hizentra or ~590mg/kg/month dosing) -Obtain following labs to round out immune system evaluation: lymphocyte subsets, pneumococcal titers, and tetanus titer -These labs will also be followed up in an outpatient setting (i.e., not in an acute illness) -Results of lab work will better inform any additional evaluation/management (e.g. Capvaxive-21 vaccination, genetic testing, etc.) History of Present Illness Reason for Consultation: "ig deficiency" Attending Physician: Daniele Albright MD History of Present Illness Patient is a 59 year old woman with history of non-Hodgkin's lymphoma (status post R-CHOP chemotherapy), similar family history of malignancy and subsequent secondary immunodeficiency, and is currently being hospitalized for disseminated varicella-zoster. The patient's sister (a Operations And Maintenance Specialist in [place]) joined in the visit via Phone Call to assist in providing pascual components of a reliable clinical history. The patient reviews that she does not have a particularly significant history of frequently recurring sinopulmonary infections (not typically experiencing sinus infections, and never having experienced symptoms of pneumonia in her lifetime), but that she does have a previous medical history of stage IIIA non-Hodgkin's lymphoma diagnosed in October 2014 (status post R-CHOP chemotherapy, now in [facility]). Of note, as part of her chemotherapy the patient has received rituximab (a B-cell depleting agent). Although she previously experienced chickenpox, the patient has never received the Shingrix vaccination and more recently over the past 2 weeks or so she has developed a progressively worsening rash (associated with a burning sensation) that has ultimately culminated in being diagnosed as disseminated zoster for which she is now currently hospitalized and receiving IV acyclovir. She notes that her rashes and burning sensations have already started to largely (though not completely) improve. The remainder of her hospital course thus far has been largely uneventful, as the patient's varicella-zoster has not been complicated by superinfection with encapsulated organisms (sinopulmonary infections, skin abscesses, etc.). Of note, the patient does have a family history of similar malignant/infectious/immunocompromised concerns. More specifically, the patient's sister (a Operations And Maintenance Specialist in [place]) has had a very similar illness/treatment course and has previously been identified to have low immunoglobulin levels for which she also periodically receives immunoglobulin replacement therapy ("typically receiving outpatient IVIG infusions about twice per year or so as infection prophylaxis before large conferences, etc."). As such, as part of her own inpatient workup the patient was also identified to have low immunoglobulin levels (IgG <200.0mg/dL, IgA <10.0mg/dL, and IgM 70.2mg/dL). She has not required inpatient therapy with any antibiotics thus far. Allergies Allergy/AdvReac Type Severity Reaction Status Date / Time buspirone [From BuSpar] AdvReac Anxiety Verified 04/01/25 10:22 Home Medications Medication Instructions Recorded Confirmed Type cholecalciferol (vitamin D3) 50 1,000 unit PO DAILY 01/15/21 04/01/25 History mcg (2,000 unit) tablet folic acid 400 mcg tablet 0.4 mg PO DAILY 01/15/21 04/01/25 History hydroxyzine HCl 10 mg tablet 10 mg PO TID PRN anxiety #30 tabs 10/03/23 04/01/25 Rx magnesium glycinate 100 mg (as 400 mg PO DAILY 10/03/23 04/01/25 History glycinate) tablet mecobalamin (vitamin B12) 1,000 1,000 mcg PO DAILY 03/29/24 04/01/25 History mcg chewable tablet loratadine 10 mg tablet 10 mg PO DAILY PRN allergy 06/07/24 04/01/25 Rx symptoms #30 tabs escitalopram oxalate 5 mg tablet 5 mg PO DAILY #30 tabs 10/14/24 04/01/25 Rx (Lexapro) gabapentin 100 mg capsule 100 mg PO TID PRN Nerve pain #30 03/29/25 04/01/25 Rx caps Patient History Medical History Inspiratory wheezing on left side of chest Tendinitis of left ankle Left ankle injury Status post chemotherapy Right hand pain Surgical History History of removal of skin mole H/O rhinoplasty Hx of tonsillectomy Family History Mother Breast cancer Hypothyroid Glaucoma Aunt Breast cancer Denies family history of Ovarian cancer Prostate cancer Myocardial infarction Colorectal cancer Social History Smoking Status: Never smoker Second Hand Exposure: No; Hx Alcohol Use: No Hx Substance Use: No Preferred Language: Urdu Communication Ability: Effective Visual Impairment: No Limitations Hearing Ability: Normal [employer] Required: No Beliefs That Will Affect Care: None marital status: Current Living Situation: Spouse current occupational status: employed Feels Safe at Home: Yes Childhood Exposure to Second-Hand Smoke: No Dental Care, Regularly: Yes Physical Activity Frequency: Daily Seatbelt Use: always Sunscreen Use: No Assistive Devices: Glasses Review of Systems Review of Systems: All systems reviewed & are unremarkable except as noted in Subjective Physical Exam Physical Exam: General: NAD, well-appearing woman resting in hospital bed, pleasant and cooperative, engaged in interview and exam HEENT: NC/AT, MMM, no tonsillar swelling/erythema, no conjunctival injection, no nasal discharge Neck: supple, FROM, no LAD Cardiac: normal S1 and S2, RRR, no M/R/G, brisk cap refill < 2 seconds Lungs: CTAB, no W/R/R, normal work of breathing Abdomen: normal BS, soft, NT/ND, no hepatosplenomegaly, no masses Extremities: 3+ pulses, no gross deformities, no cyanosis/edema Neuro: no focal deficits, appropriate muscle strength and tone Skin: few scattered faintly erythematous papular rash of the scalp/head and back/chest extending to involve the extremities, otherwise clean/dry/intact [place] [address] IN/OBS CONSULT LVL 4,60M Patient Type New History Comprehensive Exam Comprehensive Medical Decision Making Moderate Complexity Diagnoses 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
[2025-04-03] MEDS: Octagam 10% IVIG 5 gram bottle IV SCH (12:26)
[2025-04-03] MEDS: Octagam 10% IVIG 10 gram bottle IV SCH (14:16)
[2025-04-03] MEDS: Octagam 10% IVIG 20 gram bottle IV SCH (16:17)
--- NOTE | 2025-04-03 16:33 | Hospitalist Progress Note ---
Date of Service April 03, 2025 Assessment & Plan (1) Disseminated varicella: (2) Anxiety: (3) Thrombocytopenia: Plan 59-year-old female with a past medical history of non-Hodgkin's lymphoma in remission, anxiety, thrombocytopenia, splenomegaly presents for facility with likely disseminated varicella with failure of outpatient therapy: #Disseminated varicella - Continue with IV acyclovir. -Reviewed with infectious disease, Awaiting detailed infectious disease consultation, this will likely not be until 04/04. -Unclear underlying cause for disseminated varicella -Will check for HIV, chest x-ray with no acute findings -has some lesions on the scalp, currently has had no vision changes, lesions slowly improving. - She has ongoing complaints of neuralgia in relation to lesions, continue with gabapentin at nighttime. Ordered for additional Trileptal and will see how this is tolerated. #Immunoglobulin deficiency -IgG along with IgA levels are low for the patient, reviewed case with allergy/immunology in detail. Appreciate their detailed consultation. - Patient ordered for one-time dose of IVIG while here in the hospital, will require outpatient follow-up with immunology on discharge. #Anxiety -Continue home Lexapro dosing #Thrombocytopenia -Continue to monitor platelets, no evidence of acute bleeding noted #Hyperbilirubinemia -Patient with elevated bilirubin on admission, will check abdominal ultrasound to evaluate this further - Relatively stable at this time. Admission and Anticipated Discharge Date Admission Date: April 01, 2025 Subjective Patient seen and examined. She mentions that she has some ongoing discomfort in her right foot, which she describes as significant burning and pain that has become more constant. She was not able to keep socks on due to the constant sensitivity. Physical Exam Physical Exam: Gen-pt in NAD, awake and alert CVS-+s1,s2, RRR, no murmurs Lungs-CTA b/l GI-+ bs, normoactive, NT, ND Ext-no edema, no cyanosis Neuro-grossly intact Results & Data Results & Data Vital Signs (Past 12 Hours) Vital Signs Temp Pulse Resp BP Pulse Ox O2 Del Method 04/03/25 15:20 36.5 C 62 18 116/73 100 Room Air Laboratory Results 04/03/25 06:03 WBC 5.08 RBC 3.77 L Hgb 11.4 L Hct 32.6 L MCV 86.5 MCH 30.2 MCHC 35.0 RDW Std Deviation 47.0 H RDW Coeff of Alex 15.2 H Plt Count 122 L MPV 10.2 Immature Gran % (Auto) 0.2 Neut % (Auto) 54.9 Lymph % (Auto) 37.0 [place] % (Auto) 6.5 Eos % (Auto) 1.0 Baso % (Auto) 0.4 Neut # (Auto) 2.79 Lymph # (Auto) 1.88 [place] # (Auto) 0.33 Eos # (Auto) 0.05 Baso # (Auto) 0.02 Immature Gran # (Auto) 0.01 Sodium 141 Potassium 4.2 Chloride 107 Carbon Dioxide 28 Anion Gap 6 BUN 12 Creatinine 0.56 L Est Cr Clr Drug Dosing 115.8 eGFR 105.07 BUN/Creatinine Ratio 21.4 H Glucose 101 H Calcium 9.0 Magnesium 2.4 Total Bilirubin 1.0 AST 14 ALT 14 Alkaline Phosphatase 60 Total Protein 5.5 L Albumin 4.1 Globulin 1.4 L Albumin/Globulin Ratio 2.9 H IgG < 200.0 L IgA < 10.0 L IgM 70.2 PG Care Time/CCT Total # of Minutes Spent Total Time Spent with Patient: Total time spent is greater than 50% in coordination of care (as documented) at patient's floor/unit and/or counseling patient: Coding Level of Care Code 76969 SUB INP/OBS CARE 3/50MIN Diagnoses Disseminated varicella B01.9 Anxiety F41.9 Thrombocytopenia D69.6
[2025-04-03] MEDS: IMMUNE GLOBULIN IV (HUMAN) SOLN IV ONE (18:42)
--- NOTE | 2025-04-03 20:47 | Electrocardiogram Report ---
Test Reason : Blood Pressure : */* mmHG Vent. Rate : 65 BPM Atrial Rate : 65 BPM P-R Int : 136 ms QRS Dur : 88 ms QT Int : 410 ms P-R-T Axes : 62 39 -3 degrees QTcB Int : 426 ms Normal sinus rhythm Abnormal ECG When compared with ECG [id number] 11:41, anterolateral ST changes are new Confirmed by Claudia Herrera (Tesfaye) on 04/03/2025 8:47:28 PM Referred By: Sammie Myles Confirmed By: Claudia Herrera
[2025-04-03 22:04] VITALS: TEMP 97.9
--- NOTE | 2025-04-04 03:34 | Ultrasound Report ---
EXAM: US abdomen limited CLINICAL HISTORY: Hyperbilirubinemia TECHNIQUE: Ultrasound examination of the RUQ was performed in real-time grayscale and duplex. COMPARISON: None available. FINDINGS: Liver: Liver size: Mildly enlarged, spanning 16.5 cm. No evidence of focal lesions, cysts, or masses. Hepatic vasculature appears normal. Gallbladder: Gallbladder size: average size, with wall thickening of 1mm. Negative Pearson sign. No gallstones or pericholecystic fluid noted. No evidence of gallbladder wall edema or signs of acute cholecystitis. Biliary Tree: Common bile duct diameter: 3.8 mm. No evidence of choledocholithiasis or biliary obstruction. Right Kidney: Right kidney size: shows a Prominent collecting system and renal pelvis Dilated proximal ureter reaching 6mm. Not visualized the distal portion. The right kidney appears normal in size with preserved corticomedullary differentiation. No detected stones, renal cysts, or masses. Pancreas: Limited due to overlying gas, with unremarkable visualized parts. IMPRESSION: 1. Mild right-sided ureterohydronephrosis. CTU is advised if clinically indicated. 2. No evidence of biliary obstruction or gall bladder stones. RECOMMENDATIONS: Clinical correlation with symptoms and further evaluation as indicated. Electronically signed by Seng Das 04-04-2025 03:33 AM
[2025-04-04 09:23] VITALS: BP 108/66; PULSE 73; RESP 15; O2SAT 97
--- NOTE | 2025-04-04 09:27 | Infectious Disease Progress Nt ---
Date of Service April 04, 2025 Assessment & Plan (1) Disseminated varicella: (2) History of non-Hodgkin lymphoma: (3) Spleen enlargement: Plan 59yo F with h/o non-Hodgkins lymphoma dx 2015 s/p HOP with complete remission by Mar 2015, familial spherocytosis, hereditary hemochromatosis, enlarged spleen, hemorrhoids who presented on 04/01 with c/f disseminated zoster with initial lesions starting about 1wk ago. Taking valacyclovir since 03/29. On arrival, she was afebrile, vss. WBC wnl, Cr 0.54, AST/ALT wnl. PCT 0.17. Right LE venous doppler neg for DVT. She was started on acyclovir. Pt notes her rash started on the R buttock, spread to her RLE on 03/31. Also notes a lesion under her R breast and on her R lower back. Was told she may have some spots on her scalp, although unclear if related. ID consulted 04/01 and was continued on IV acyclovir for disseminated infection. She is not on chemo and doesnt have any current known immunocompromise. 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 Was given a spot dose of IVIG on 04/03, with plan to follow-up as outaptient. # Disseminated herpes zoster # h/o non-Hodgkins lymphoma in remission since 2014 Recommendations: - Ok to transition from IV acyclovir to valacyclovir 1 g PO TID through 04/11 to complete a total ~10 day course of antiviral therapy from first day of IV acyclovir Will sign off. Admission and Anticipated Discharge Date Admission Date: April 01, 2025 Subjective Subsequent visit was provided via telemedicine using two-way real-time interactive telecommunication between the patient and the telemedicine provider. For the duration of the visit, the provider was performing the assessment from a different facility than the patient. This includesuse of bluetooth stethoscope forauscultationperformed by the telepresenter that the telemedicine provider can hear if described in the physical exam. Tent Worker contact information: Please call [facility] . (Phone Number For Physician Use Only) After establishing a telemedicine visit, patient was: Patient was verified with two unique identifiers, Patient/authorized rep acknowledged consent and understanding and Gave permission to continue telehealth session Time Spent with Patient: Subsequent => 35 min Pt feels improved. Has not noticed any further spread of her rash. The rash on her RLE is clearing up. The tingling/numbness is present but decreased from prior Review of System A complete ROS was performed and is negative except as mentioned in the HPI. Physical Exam Physical Exam: GEN: Well-appearing, in NAD. RESP: No increased work of breathing SKIN: Crusted lesions on R buttock, R lower leg and foot. One lesion under R breast and one lesion on R lower back. NEURO: Alert and oriented. Answers all questions appropriately. Speech not slurred. PSYCH: Normal mood, affect appropriate. Results & Data Vital Signs (Past 12 Hours) Vital Signs Temp Pulse Resp BP Pulse Ox O2 Del Method 04/04/25 09:10 73 15 108/66 97 Room Air 04/04/25 08:45 36.6 C 74 14 125/77 98 Room Air 04/03/25 22:03 36.6 C 70 16 112/66 97 Room Air
[2025-04-04 09:31] LABS: Hematocrit (blood only) 35.4 % (37.0-47.0); Hemoglobin 12.5 g/dL (12.0-16.0); Immature Granulocytes # (auto) 0.02 K/uL (0.01-0.20); Immature Granulocytes % (auto) 0.4 %; Mean Corpuscular Hemoglobin 30.3 pg (25.0-34.0); Mean Corpuscular Volume 85.9 fL (80.0-100.0); Platelet Count 148 K/uL (130-400); RDW Standard Deviation 47.5 fL (36.4-46.3); Red Blood Count 4.12 M/uL (4.20-5.40); White Blood Count 4.87 K/ul (4.8-10.8)
[2025-04-04 09:48] LABS: Alanine Aminotransferase 21.0 U/L (7-52); Albumin Globulin Ratio 1.8 (0.9-2); Albumin Level 4.5 gm/dl (3.4-5.0); Alkaline Phosphatase 69.0 U/L (34-104); Anion Gap 8.0 (3-11); Bilirubin,Total 1.2 mg/dl (0.2-1.0); Blood Urea Nitrogen 10.0 mg/dl (6-23); Calcium 9.2 mg/dl (8.6-10.3); Carbon Dioxide 28.0 mmol/L (21-32); Chloride 101.0 mmol/L (98-107); Creatinine Clr Calc Pharmacy 106.3 ml/min; Globulin 2.5 gm/dl (2.5-4.0); Glucose 155.0 mg/dl (70-99(Fasting)); Magnesium 2.3 mg/dl (1.7-2.4); Potassium 4.0 mmol/L (3.5-5.1); Sodium 137.0 mmol/L (136-145); Total Protein 7.0 gm/dl (6.0-8.3)
--- NOTE | 2025-04-04 14:19 | Discharge Summary ---
Discharge Summary Date of Service April 04, 2025 Principal Dx & Hospital Course #1 = Principal Diagnosis (1) Disseminated varicella: (2) Anxiety: (3) Thrombocytopenia: Plan 59-year-old female with a past medical history of non-Hodgkin's lymphoma in remission, anxiety, thrombocytopenia, splenomegaly presents for facility with likely disseminated varicella with failure of outpatient therapy: #Disseminated varicella - Transition to p.o. valacyclovir from IV acyclovir. Per infectious disease they recommend a 10-day course of antivirals. -Reviewed with infectious disease, appreciate there input. -Will check for HIV, results pending. - chest x-ray with no acute findings -has some lesions on the scalp, currently has had no vision changes, lesions slowly improving. - She has ongoing complaints of neuralgia in relation to lesions, continue with gabapentin at nighttime. Ordered for additional Trileptal and can follow up with pcp for further med adjustment, will need labs in follow up post dc. #Immunoglobulin deficiency -IgG along with IgA levels are low for the patient, reviewed case with allergy/immunology in detail. Appreciate their detailed consultation, will require outpt follow up. - Patient ordered for one-time dose of IVIG while here in the hospital. - Immunology requested certain lab work that were ordered while the patient is here in the hospital, to be followed by them in the outpatient clinic setting. #Anxiety -Continue home Lexapro dosing #Thrombocytopenia -Continue to monitor platelets, no evidence of acute bleeding noted #Hyperbilirubinemia -Patient with elevated bilirubin on admission, cont to fluctuate. - Abdominal ultrasound indicates mildly enlarged liver, no evidence of biliary obstruction Or gallstones seen. - Relatively stable at this time. #Right sided hydroureter hydronephrosis -Recommendations per radiology refer the patient to undergo CT urogram, reviewed with the patient and she would like to follow-up with her own primary care physician in relation to this. -Urinalysis ordered -Patient's kidney function remains relatively stable. Admission HPI Per Admitting Provider 59-year-old female with a past medical history as mentioned below presents to the hospital from home. She mentions that last Friday she started experiencing right lower extremity discomfort, along with some skin changes for which she went to an urgent care center. She was diagnosed with shingles, given a prescription for acyclovir but told that she will likely will not need to take this. She did not take the acyclovir, and noticed worsening discomfort along with skin changes on her chest for which she went to her primary care physician earlier this week. They recommended that she take the acyclovir, which she initiated. She has been taking the acyclovir for at least 2 days, but noticed increased skin changes along with sharp pain on her right scalp. She denies having any vision changes or hearing issues. She also noticed increased skin changes on her right back area, Along with skin changes going down to her right leg and foot. She reached out to her primary care physician's office today and they advised that she come to the hospital for intravenous medication. She has had no fevers but mention she has had some intermittent chills. She has not no cough. She had chickenpox as a child but did not receive the shingles vaccine. Discharge Plan Discharge Items Patient Disposition: Home - Self-Care Reason For Visit: DISSEMINATED ZOSTER Discharge Diagnosis: Disseminated zoster immune compromised Condition on Discharge: Good Activity: Per Instructions section Lifting: Gradually increase as tolerated Bathing: No limitations Sexual Activity: When tolerated Exercise/Sports: Gradually increase as tolerated Driving/Machine Use: No limitations Weightbearing: Full weightbearing Non-emergency contact: Primary Care Provider Call non-emergency contact if: you have any medication questions, your symptoms worsen, your pain is not controlled, your pain is worsening, your pain is unusual for you and you have a fever Follow-up/Referrals: Sammie Myles MD [Primary Care Provider] - 04/12/25 11:00 am (04/12/25 at 11:00 with Huma Woo) Diet: Heart Healthy Addtl Attending Provider Instructions: you presented to the hospital with disseminated zoster, were treated with intravenous antiviral therapy. As you have been improving, you are being discharged home with oral antiviral medications. You are also found to have immune deficiency, and you were given 1 dose of IVIG while here in the hospital, you will need to follow-up with the allergy/immunology clinician. You also have some ongoing pain in relation to shingles, after that she will be discharged on medications to help with pain but will require follow-up closely with your primary care physician. If you develop any confusion, generalized malaise, fevers, change in your urination consider returning to the hospital at that time. You will need to have follow-up lab work performed at your primary care physician's office including a BMP to monitor your sodium and kidney function. Pending Studies at Discharge: Yes Stand-Alone Forms: My [facility], Smoking Cessation Medications and DC Order Prescriptions: New oxcarbazepine 150 mg Tablet 150 mg PO BID PRN (Reason: shingles) 15 Days Qty: 30 0RF valacyclovir 500 mg Tablet 1,000 mg PO TID 8 Days Qty: 48 0RF gabapentin 300 mg Capsule 300 mg PO HS 14 Days Qty: 14 0RF Continued cholecalciferol (vitamin D3) 50 mcg (2,000 unit) tablet 1,000 unit PO DAILY escitalopram oxalate [Lexapro] 5 mg tablet 5 mg PO DAILY Qty: 30 5RF folic acid 400 mcg tablet 0.4 mg PO DAILY magnesium glycinate 100 mg tablet 400 mg PO DAILY hydroxyzine HCl 10 mg tablet 10 mg PO TID PRN (Reason: anxiety) Qty: 30 1RF gabapentin 100 mg capsule 100 mg PO TID PRN (Reason: Nerve pain) Qty: 30 0RF loratadine 10 mg tablet 10 mg PO DAILY PRN (Reason: allergy symptoms) Qty: 30 0RF mecobalamin (vitamin B12) 1,000 mcg tablet,chewable 1,000 mcg PO DAILY Discharge Orders: Discharge Order (Routine); Ordered 04/04/25 Ordered By: Daniele Moore/Other Patient Handouts: Shingles (Herpes Zoster) Admission Data Admit Date/Time: 04/01/25 15:24 Attending Provider: Daniele Albright Admit Provider: Daniele Albright Primary Care Provider: Sammie Myles V. Other Providers: Tc Cagle Other Interventions: Discharge Summary Assessment (RN) Last Done: 04/04/25 16:03 Hospital Stay Data Consultations 04/01/25 15:27 Consult Infectious Diseases Routine 04/03/25 09:46 Consult Allergy / Immunology Routine 04/04/25 11:53 Consult [facility] devulcanizer tender Stat Diagnostic Imagining Performed 04/01/25 11:45 US venous duplex leg [US venous doppler LE RT] Stat 04/04/25 US abdomen limited Routine Pending Results Patient Have Any Pending Studies at Discharge: Yes Discharge Instructions Given to Patient (Per Discharging Provider) you presented to the hospital with disseminated zoster, were treated with intravenous antiviral therapy. As you have been improving, you are being discharged home with oral antiviral medications. You are also found to have immune deficiency, and you were given 1 dose of IVIG while here in the hospital, you will need to follow-up with the allergy/immunology clinician. You also have some ongoing pain in relation to shingles, after that she will be discharged on medications to help with pain but will require follow-up closely with your primary care physician. If you develop any confusion, generalized malaise, fevers, change in your urination consider returning to the hospital at that time. You will need to have follow-up lab work performed at your primary care physician's office including a BMP to monitor your sodium and kidney function. Total Time Total Time Spent Total Time Spent (In Minutes): Greater than 45 minutes was spent in the discharge coordination and care of this patient. Coding Level of Care Code 31498 INP/OBS DISCH >30 MIN Diagnoses Disseminated varicella B01.9 Anxiety F41.9 Thrombocytopenia D69.6
[2025-04-04 14:36] LABS: Appearance Urine Clear (Clear); Bacteria Urine Automated None Seen (None Seen); Cast Urine Automated 0-2 /lpf (0-2); Epithelial Cell Urine Auto 0-2 /hpf (0-2); Glucose Urine UA Negative (Negative); RBC Urine Automated 0-2 /hpf (0-2); WBC Urine Automated 0-5 /hpf (0-5)
[2025-04-05 03:53] LABS: EAG mmol/L DNR mmol/L; HA1C <4.2 % (<5.7)
[2025-04-06 17:23] LABS: LSP ABS CT CD3-CD16+CD56+ 52 cells/uL (70-760); LSP CD3-CD16+CD56+ % 4 % (4-25); Lymphocyte Subset Pan Comment DNR
[2025-04-06 21:23] LABS: HIV 1 RNA PCR Copies/ML Not Detected Copies/mL
[2025-04-07 13:13] LABS: Lymphocyte Subset Pan Comment DNR
[2025-04-08 21:33] LABS: Pneumococcal IgG Type 12 (12F) <0.3; Pneumococcal IgG Type 17 (17F) <0.3; Pneumococcal IgG Type 19 (19F) <0.3; Pneumococcal IgG Type 2 <0.3; Pneumococcal IgG Type 20 <0.3; Pneumococcal IgG Type 22 (22F) <0.3; Pneumococcal IgG Type 23 (23F) <0.3; Pneumococcal IgG Type 26 (6B) <0.3; Pneumococcal IgG Type 34 (10A) <0.3; Pneumococcal IgG Type 43 (11A) <0.3; Pneumococcal IgG Type 51 (7F) <0.3; Pneumococcal IgG Type 54 (15B) <0.3; Pneumococcal IgG Type 56 (18C) <0.3; Pneumococcal IgG Type 57 (19A) <0.3; Pneumococcal IgG Type 68 (9V) 1.5; Pneumococcal IgG Type 70 (33F) <0.3
== END 2025-04-04 16:49 | disposition home or self-care (01) | DRG 866 ==
LOC: ED 11:23 → EDINP 15:24 → 3W 17:37